=== PATIENT | female | born 1970 | race Caucasian/White ===

== ENCOUNTER → 2020-08-27 | Outpatient (CLI) | payer BC ==
--- NOTE | 2020-08-27 09:06 | REP ---
INDICATION: CERVICAL DDD ? HNP VS STENOSIS. COMPARISON: None. TECHNIQUE: Sagittal and axial T1 and T2-weighted scans are acquired in the usual fashion with and without fat saturation. Sequences include spin echo, turbo spin-echo, and STIR imaging sequences. FINDINGS: There is straightening and reversal of the normal cervical At the C5-6 level, there is degenerative disc narrowing and decreased signal intensity. There is a 2 mm retrolisthesis of C5 posterior with respect to C6. There is diffuse disc bulging and a right foraminal disc protrusion is seen at C5-6 with associated spurring producing significant right-sided neural foraminal narrowing. There is mild uncovertebral spurring on the left at C5-6. No cord compression is seen. At the C6-7 disc level there is minimal central bulging. No other finding. Minimal central disc bulging is present at C4-5. This and the C3-4 and C2-3 levels are otherwise unremarkable. Craniocervical junction is normal. Cervical cord is normal in course, caliber and signal intensity. IMPRESSION: Right foraminal disc protrusion with associated spurring producing neural foraminal narrowing on the right at C5-6. There is a 2 mm C5-6 retrolisthesis also noted. Degenerative disc changes are noted at C5-6. There is reversal of the normal cervical lordosis. <Electronically signed by Jimenez Read > 08/27/20 [id number]
== END ==
LOC: M RAD 07:09
PROVIDERS: ATTEND Physician Assistant
DX: M50.30 Other cervical disc degeneration, unspecified cervical region (principal)

== ENCOUNTER → 2023-05-04 | Outpatient (CLI) | payer BC ==
[2023-05-04 13:19] LABS: HEMATOCRIT 41.7 % (36.0-47.0); HEMOGLOBIN 13.6 g/dl (12.0-15.5); MEAN CORPUSCULAR HEMOGLOBIN 30.1 pg (27.0-33.0); MEAN CORPUSCULAR HGB CONC 32.6 g/dl (32.0-36.5); MEAN CORPUSCULAR VOLUME 92.3 fl (80.0-96.0); PLATELET COUNT, AUTOMATED 263 10^3/uL (150-450); RED BLOOD COUNT 4.52 10^6/uL (4.00-5.40); WHITE BLOOD COUNT 5.2 10^3/uL (4.0-10.0)
[2023-05-04 13:22] LABS: LIPASE 35 U/L (12-53)
[2023-05-04 13:23] LABS: AMYLASE 111 U/L (30-118)
[2023-05-04 13:24] LABS: ALBUMIN 3.7 G/DL (3.2-5.2); ALKALINE PHOSPHATASE 53 U/L (46-116); ALT/SGPT 17 U/L (7.0-40); AST/SGOT 17 U/L (<34); BILIRUBIN,TOTAL 0.3 MG/DL (0.3-1.2); BLOOD UREA NITROGEN 12 MG/DL (9-23); CALCIUM LEVEL 9.1 MG/DL (8.5-10.1); CARBON DIOXIDE LEVEL 28 MMOL/L (20-31); CHLORIDE LEVEL 106 MMOL/L (98-107); CHOLESTEROL LEVEL 242 MG/DL (<200); CHOLESTEROL RISK RATIO 2.49 (<5); CREATININE FOR GFR 0.77 MG/DL (0.55-1.30); GLOMERULAR FILTRATION RATE > 60.0 (>51); GLUCOSE, FASTING 87 MG/DL (60-100); HDL CHOLESTEROL 96.9 MG/DL (>40); LDL CHOLESTEROL 132.7 MG/DL (<100); NON-HDL-C 145.1 MG/DL; POTASSIUM SERUM 4.2 MMOL/L (3.5-5.1); SODIUM LEVEL 142 MMOL/L (136-145); TOTAL PROTEIN 7.1 G/DL (5.7-8.2); TRIGLYCERIDES LEVEL 62 MG/DL (<150)
[2023-05-04 13:26] LABS: THYROID STIMULATING HORMONE 1.409 uIU/ML (0.55-4.78)
[2023-05-04 14:10] LABS: HEMOGLOBIN A1c 5.4 % (4.0-6.0)
== END ==
LOC: M WUC 10:37
DX: E07.9 Disorder of thyroid, unspecified (principal)

== ENCOUNTER → 2023-06-27 | Outpatient (CLI) | payer BC | LOC: M WHC 10:21 | PROVIDERS: ATTEND Nurse Practitioner Family | DX: Z12.31 Encounter for screening mammogram for malignant neoplasm of breast (principal); R92.323 Mammographic fibroglandular density, bilateral breasts ==

== ENCOUNTER → 2023-06-27 | Outpatient (REF) | payer BC | LOC: M SFHCWAGY 15:30 | PROVIDERS: ATTEND Nurse Practitioner Family | DX: Z12.4 Encounter for screening for malignant neoplasm of cervix (principal); N95.2 Postmenopausal atrophic vaginitis | CPT/HCPCS: 87624; G0123 ==

== ENCOUNTER → 2025-04-09 | Outpatient (CLI) | payer BC | LOC: M WHC 13:49 | PROVIDERS: ATTEND Nurse Practitioner Family | DX: Z12.31 Encounter for screening mammogram for malignant neoplasm of breast (principal); R92.323 Mammographic fibroglandular density, bilateral breasts ==